=== PATIENT | female | born 1950 | race American Indian/Alaskan Native ===

== ENCOUNTER 2017-03-08 09:13 | Emergency (ER) | payer BC, MEDICARE ==
[2017-03-08] MEDS ORDERED: DECADRON ONE (10:31)
[2017-03-08] MEDS ORDERED: PEPCID IV ONE ×2 (10:31→10:46)
[2017-03-08] MEDS ORDERED: DECADRON IV ONE (10:46)
--- NOTE | 2017-03-08 14:04 | Emergency Department Report ---
ED General Adult HPI - General Chief complaint: Allergic Reaction Stated complaint: ANGIOEDEMA/ALLERGIC REACTION Time Seen by Provider: 03/08/17 10:27 Source: patient Mode of arrival: Ambulatory Limitations: No Limitations - History of Present Illness Initial comments: Patient states that her last lisinopril was yesterday. When she woke up at 6: 00 this morning she noticed that her lips were swollen. She denied any swelling on the inside of her mouth. She denied dyspnea. She made some vague reference to difficulty in swallowing but is able to swallow at this time. She took 25 mg of Benadryl 4 prior to arrival. This swelling has been restricted to her upper and lower lip. She has taken lisinopril for the last 3 years. -: During the night Location: mouth (lips) Quality: other Consistency: constant Improves with: none Worsens with: none Associated Symptoms: denies other symptoms Treatments Prior to Arrival: none - Related Data Allergies Allergy/AdvReac Type Severity Reaction Status Date / Time Sulfa (Sulfonamide Allergy Itching Verified 03/08/17 09:37 Antibiotics) ED Review of Systems ROS: Stated complaint: ANGIOEDEMA/ALLERGIC REACTION Other details as noted in HPI Constitutional: denies: chills, fever Eyes: denies: eye pain, eye discharge, vision change ENT: denies: ear pain, throat pain Respiratory: denies: cough, shortness of breath, wheezing Cardiovascular: denies: chest pain, palpitations Endocrine: no symptoms reported Gastrointestinal: denies: abdominal pain, nausea, diarrhea Genitourinary: denies: urgency, dysuria, discharge Musculoskeletal: denies: back pain, joint swelling, arthralgia Skin: denies: rash, lesions Neurological: denies: headache, weakness, paresthesias Psychiatric: denies: anxiety, depression Hematological/Lymphatic: denies: easy bleeding, easy bruising ED Past Medical Hx - Past Medical History Hx Hypertension: Yes Hx Diabetes: Yes Hx Arthritis: Yes Additional medical history: HYPOTHYROIDISM. ANEMIA - Surgical History Hx Cholecystectomy: Yes Additional Surgical History: BACK SURGERY (RODS AND SCREWS). TONSILLECTOMY. HYSTERECTOMY - Social History Smoking Status: Never Smoker Substance Use Type: None ED Physical Exam - General Limitations: No Limitations General appearance: alert, in no apparent distress - Head Head exam: Present: atraumatic, normocephalic - Eye Eye exam: Present: normal appearance - ENT ENT exam: Present: normal orophraynx, mucous membranes moist, other (1+ upper and lower lip edema) - Neck Neck exam: Present: normal inspection. Absent: tenderness, meningismus - Respiratory Respiratory exam: Present: normal lung sounds bilaterally. Absent: respiratory distress - Cardiovascular Cardiovascular Exam: Present: regular rate, normal rhythm. Absent: systolic murmur, diastolic murmur, rubs, gallop - GI/Abdominal GI/Abdominal exam: Present: soft, normal bowel sounds. Absent: distended, tenderness, guarding, rebound - Extremities Exam Extremities exam: Present: normal inspection - Back Exam Back exam: Present: normal inspection - Neurological Exam Neurological exam: Present: alert, oriented X3, CN II-XII intact - Psychiatric Psychiatric exam: Present: normal affect, normal mood - Skin Skin exam: Present: warm, dry, intact, normal color. Absent: rash ED Course Vital Signs 03/08/17 03/08/17 03/08/17 09:40 10:17 10:30 Temperature 98.1 F Pulse Rate 96 H 80 69 Respiratory 18 11 L 10 L Rate Blood Pressure 139/62 141/62 O2 Sat by Pulse 100 100 100 Oximetry 03/08/17 03/08/17 03/08/17 10:47 11:00 11:31 Temperature Pulse Rate 70 69 Respiratory 16 13 10 L Rate Blood Pressure 122/60 129/68 O2 Sat by Pulse 100 100 100 Oximetry 03/08/17 03/08/17 12:00 12:30 Temperature Pulse Rate 70 76 Respiratory 13 13 Rate Blood Pressure 123/66 143/65 O2 Sat by Pulse 100 100 Oximetry - Reevaluation(s) Reevaluation #1: Patient states the swelling has improved. There does seem to be some decreased. She has not developed any oral pharyngeal edema. There is no signs of a systemic reaction. She is appropriate for outpatient disposition. She was given return criteria. Her blood pressure remained normotensive despite not taking lisinopril today. She is referred to her primary care provider for replacement antihypertensive therapy if indicated. 03/08/17 14:06 Critical care attestation.: If time is entered above; I have spent that time in minutes in the direct care of this critically ill patient, excluding procedure time. ED Disposition Clinical Impression: Angioedema of lips Qualifiers: Encounter type: initial encounter Qualified Code(s): T78.3XXA - Angioneurotic edema, initial encounter Adverse reaction to RAFAEL inhibitor drug Qualifiers: Encounter type: initial encounter Qualified Code(s): T46.4X5A - Adverse effect of zlhqrflnhxs-jrhscxmdpx-qbnnkw inhibitors, initial encounter Disposition: TO HOME OR SELFCARE Is pt being admited?: No Does the pt Need Aspirin: No Condition: Stable Instructions: Angioedema (ED) Additional Instructions: Do not take Rafael inhibitors or ARBs. Inform your primary care provider of this reaction. 25 mg of Benadryl every 6 hours over the next day. Pepcid 20 mg twice a day for the next few days. These medicines are [id number]. Return increased swelling. You may need a replacement medicine for your high blood pressures so see your primary care provider concerning this. Referrals: PRIMARY CARE, [Primary Care Provider] - 2-3 Days Time of Disposition: 14:08
[2017-03-08 15:18] VITALS: BP 132/66
== END 2017-03-08 15:18 | disposition home or self-care (01) ==
LOC: ED 09:13
DX: T78.3XXA Angioneurotic edema, initial encounter (principal); T46.4X5A Adverse effect of angiotensin-converting-enzyme inhibitors, initial encounter; I10 Essential (primary) hypertension; E11.9 Type 2 diabetes mellitus without complications; Y92.9 Unspecified place or not applicable
CPT/HCPCS: 82962; 96374; 96375; 99283; J1100

== ENCOUNTER 2019-01-22 11:04 | Outpatient (CLI) | payer MEDICARE ==
--- NOTE | 2019-01-25 10:29 | Mammography Report ---
DIGITAL SCREENING MAMMOGRAM WITH CAD, 01/22/2019 INDICATION: Routine screening mammography. TECHNIQUE: Digital bilateral 2D mammography was obtained in the craniocaudal and mediolateral obliq ue projections. This examination was interpreted with the benefit of Computer-Aided Detection analysi s. COMPARISON: 11/30/2013 FINDINGS: Breast Density: The breasts are almost entirely fatty. There is no evidence of dominant mass, suspicious calcifications or architectural distortion in eithe r breast. No interval change. IMPRESSION: No evidence of malignancy. BI-RADS Category 1: Negative. No mammographic evidence of malignancy. Recommend routine screening m ammography in one year. A "normal" or negative report should not discourage follow up or biopsy of a clinically significant f inding. A written summary of these findings will be mailed to the patient. The patient will be entered into a mammography reporting system which will generate a reminder letter for the patient's next appointmen t at the appropriate interval. The [employer] recommends yearly mammograms starting at age 40 and continuing as l consuelo as a woman is in good health. Breast MRI is recommended for women with an approximate 20-25% or greater lifetime risk of breast cancer, including women with a strong family history of breast or ova joselo cancer or who have been treated for Hodgkin's disease. Signer Name: Maricarmen Dickinson MD Signed: 01/25/2019 10:25 AM Workstation Name: [id number]
== END 2019-01-22 11:05 | disposition home or self-care (01) ==
LOC: MAMMO 11:04
PROVIDERS: ATTEND Internal Medicine
DX: Z12.31 Encounter for screening mammogram for malignant neoplasm of breast (principal); I10 Essential (primary) hypertension; Z90.710 Acquired absence of both cervix and uterus
CPT/HCPCS: 77067

== ENCOUNTER 2020-03-16 14:54 | Outpatient (CLI) | payer MEDICARE ==
--- NOTE | 2020-03-16 17:42 | Magnetic Resonance Report ---
. MR cervical spine wo con INDICATION / CLINICAL INFORMATION: 69 years Female; MAIN. Neck pain TECHNIQUE: Multisequence, multiplanar images of the cervical spine were obtained. COMPARISON: None available. FINDINGS: CRANIOCERVICAL JUNCTION:No significant abnormality. ALIGNMENT: Minimal scoliosis seen. VERTEBRAE:Grossly normal marrow signal and vertebral body height for age. VISUALIZED SPINAL CORD: No significant abnormality. INTERVERTEBRAL DISCS: Multilevel disc desiccation noted. [id number] ANALYSIS: C2-3: Small posterocentral disc protrusion. Minimal facet hypertrophy. C3-4: Minimal disc bulge. Mild foraminal narrowing on the left from uncinate and facet hypertrophy. C4-5: Perhaps minimal disc bulge. Minimal foraminal narrowing on the left from uncinate and facet hyp ertrophy. C5-6: Minimal disc bulge. C6-7: Small, broad-based left paracentral disc protrusion. Minimal foraminal narrowing on the left fr om uncinate facet hypertrophy. C7-T1: Minimal foraminal narrowing on the left from uncinate hypertrophy. PARASPINAL SOFT TISSUES: Mild facet hypertrophy seen in the upper thoracic region, resulting in mild to moderate foraminal narrowing. No definitive signs of impingement exiting nerve roots appreciated. ADDITIONAL FINDINGS: Partially empty sella noted. IMPRESSION: 1. Degenerative changes of the cervical spine as described above. No single, dominant cause for patie nt's symptomatology appreciated. Please correlate with dermatomal distribution of patient's symptoms, if present. Signer Name: Kain Huggins MD, III Signed: 03/16/2020 5:38 PM Workstation Name: [id number]
== END 2020-03-16 14:55 | disposition home or self-care (01) ==
LOC: MRI 14:54
PROVIDERS: ATTEND Otolaryngology
DX: M50.21 Other cervical disc displacement, high cervical region (principal); M47.812 Spondylosis without myelopathy or radiculopathy, cervical region; M48.03 Spinal stenosis, cervicothoracic region; H90.11 Conductive hearing loss, unilateral, right ear, with unrestricted hearing on the contralateral side
CPT/HCPCS: 72141